=== PATIENT | female | born 1990 | race Hispanic/Latino ===

== ENCOUNTER 2019-09-16 11:42 | Outpatient (CLI) | payer BC, MEDICAID ==
[2019-09-16 11:49] VITALS: BP 114/73
[2019-09-16] MEDS ORDERED: LACTATED RINGERS 500 ML IV ONE (12:11)
--- NOTE | 2019-09-16 15:41 | Ultrasound Report ---
Limited obstetrical ultrasound INDICATION: labor Near term intrauterine is seen. Fetus is in a cephalic position. Placenta is posterior and free of the internal cervical os. No evidence of abruption is seen. Amniotic fluid volume appears marah litatively within normal limits and ISAÍAS is within the normal range at 8.3 cm. cardiac activity was documented at 159 bpm. Anatomical survey was not performed but no obvious abnormalities are noted in the limited images. IMPRESSION: No significant abnormalities are seen in a limited study Signer Name: Wilder Barroso MD Signed: 09/16/2019 3:37 PM Workstation Name: [id number]
== END 2019-09-16 14:41 | disposition home or self-care (01) ==
LOC: TRG 11:42 → LD 11:43 → TRG 14:41
PROVIDERS: ATTEND Obstetrics & Gynecology
DX: O47.1 False labor at or after 37 completed weeks of gestation (principal); O46.8X3 Other antepartum hemorrhage, third trimester; Z3A.35 35 weeks gestation of pregnancy
CPT/HCPCS: 76815

== ENCOUNTER 2019-09-21 19:53 | Outpatient (CLI) | payer BC ==
[2019-09-21 20:08] VITALS: BP 108/74
[2019-09-21] MEDS ORDERED: D5W/LACTATED RINGERS 1,000 ML IV ONE (20:35)
[2019-09-21] MEDS ORDERED: D5W/LACTATED RINGERS 1,000 ML IV SCH (21:00)
--- NOTE | 2019-09-21 22:55 | Ultrasound Report ---
Limited OB ultrasound INDICATION: , clinical concern for abruption FINDINGS: There is a single intrauterine . Fetus is in cephalic presentation. Amniotic fluid index is 8.6 cm which is normal. Placenta is located in the fundus. A few venous lakes are noted. No abruption is seen. Placenta is grade 1. The heart rate is 124 bpm. IMPRESSION: No placental abruption is seen. The amniotic fluid index is normal. BIOPHYSICAL PROFILE FINDINGS: breathing movement: 2/2 movement: 2/2 posture and tone: 2/2 Qualitative amniotic fluid volume: 2/2 IMPRESSION: Total score for biophysical profile is 8/8 heart rate is 124 bpm Signer Name: Harish Albarran MD Signed: 09/21/2019 10:51 PM Workstation Name: [id number]
== END 2019-09-21 22:40 | disposition home or self-care (01) ==
LOC: TRG 19:53 → APU 19:54 → TRG 22:40
PROVIDERS: ATTEND Obstetrics & Gynecology
DX: O46.8X3 Other antepartum hemorrhage, third trimester (principal); Z3A.36 36 weeks gestation of pregnancy
CPT/HCPCS: 59025; 76815; 76819; J7121